=== PATIENT | female | born 1945 | race Caucasian/White ===

== ENCOUNTER 2021-12-07 13:15 | Observation (INO) ==
[2021-12-07 13:57] LABS: Hematocrit 24.7 % (35.3-44.9); Hemoglobin 8.1 g/dL (11.5-15.4); Lymphocytes # 0.4 K/mcL (0.6-4.6); Mean Corpuscular HGB Conc 32.8 g/dL (31.6-35.5); Mean Corpuscular Volume 94.6 fL (83.0-100.0); Mean Platelet Volume 9.8 fL (9.4-12.4); Monocytes # 0.5 K/mcL (0.0-1.3); Nucleated Red Blood Cells 0.3 /100 WBC (0); Platelet Count 241 K/mcL (140-400); Red Blood Count 2.61 M/mcL (3.82-4.97); Red Cell Distribution Width 15.4 % (11.5-14.5); White Blood Count 6.6 K/mcL (4.3-11.1)
[2021-12-07] MEDS ORDERED: Isovue-370 500 ML BOTTLE IVP ONE ×2 (13:57→14:32)
[2021-12-07 14:01] LABS: INR 1.4; Prothrombin Time 15.5 Seconds (9.4-12.1)
[2021-12-07] MEDS ORDERED: Cefepime HCl 2,000 MG in 0.9 % Sodium Chloride 10 ML IVP ONE (14:04)
[2021-12-07] MEDS ORDERED: 0.9 % Sodium Chloride 1,000 ML IV ONE ×2 (14:04→14:33)
[2021-12-07] MEDS ORDERED: Tdap (Boostrix) Vaccine 0.5 ML SYRINGE IM ONE (14:05)
[2021-12-07 14:27] LABS: Bilirubin,Urine Large (Negative); Blood,Urine Large (Negative); Clarity,Urine Cloudy (Clear); Color,Urine Brown (Yellow); Glucose,Urine (UA) Normal (Normal); Ketones,Urine 15 mg/dL (Negative); Leukocyte Esterase,Urine Large (Negative); Nitrite,Urine Negative (Negative); Protein,Urine >=300 mg/dL (Neg-Trace)
[2021-12-07 14:30] LABS: Alanine Aminotransferase 9 Units/L (7-52); Albumin/Globulin Ratio 0.9 (1.1-2.2); Alkaline Phosphatase 115 Units/L (34-104); Aspartate Amino Transferase 11 Units/L (13-39); BUN/Creatinine Ratio 31 (6-26); Bilirubin,Direct 0.2 mg/dL (0.0-0.2); Bilirubin,Indirect 0.5 mg/dL (0.0-1.0); Bilirubin,Total 0.7 mg/dL (0.3-1.0); Blood Urea Nitrogen 60 mg/dL (8-23); Calcium 9.1 mg/dL (8.6-10.3); Carbon Dioxide 25 mEq/L (23-29); Chloride 96 mEq/L (98-107); Globulin 3.4 g/dL (2.4-3.5); Glucose 114 mg/dL (70-105); Lipase < 3 Units/L (11-82); Osmolality,Calculated 288 (280-300); Potassium 5.7 mEq/L (3.5-5.1); Sodium 130 mEq/L (136-145); Total Protein 6.4 g/dL (6.4-8.9); Troponin I 0.18 ng/mL (< 0.04); eGFR For African Americans 31 (> 60); eGFR For Non-African Americans 25 (> 60)
[2021-12-07] MEDS ORDERED: Aspirin 325 MG TABLET PO ONE (14:33)
[2021-12-07] MEDS ORDERED: Albuterol 2.5 MG/3 ML NEBULIZER IH ONE (14:34)
[2021-12-07 14:38] LABS: Hypochromasia Present (Not Present); Large Platelets Present (Not Present); Neutrophils # 5.7 K/mcL (1.6-8.9); Platelet Estimate Normal (Normal)
[2021-12-07 14:42] LABS: Bacteria,Urine Present per hpf (None-Few); RBC,Urine Present per hpf (0-3); Renal Epithelial Cells,Urine Present per hpf (None-Few); Transitional Epi Cells,Urine Present per hpf (None-Few); WBC,Urine Present per hpf (0-3)
[2021-12-07] MEDS ORDERED: Ondansetron 4 MG/2 ML VIAL IVP PRN ×2 (15:12→15:50)
[2021-12-07] MEDS ORDERED: *HR* HYDROmorphone (PF) 1 MG/ML SYRINGE IVP ONE (15:12)
[2021-12-07 15:39] LABS: Phosphorous 3.7 mg/dL (2.7-4.5); Uric Acid 10.7 mg/dL (2.3-7.6)
[2021-12-07] MEDS ORDERED: Naloxone 0.4 MG/ML INJ IVP PRN (15:50)
[2021-12-07] MEDS ORDERED: Acetaminophen 325 MG TABLET PO PRN (15:50)
[2021-12-07] MEDS: MetroNIDAZOLE 500 MG/100 ML 500 MG/100 ML BAG IVPB SCH (18:04)
[2021-12-07] MEDS ORDERED: *HR* Dextrose 50 % in Water (Syg) 50 ML SYRINGE IVP ONE (18:24)
[2021-12-07] MEDS ORDERED: Insulin Human Regular 10 UNIT in 0.9 % Sodium Chloride 10 ML IV ONE (18:24)
[2021-12-07] MEDS: Calcium Gluconate 1gm/50mL 1 GM/50 ML BAG IVPB SCH ×2 (19:36→20:15)
[2021-12-07 20:14] LABS: Calcium 7.9 mg/dL (8.6-10.3); Potassium 5.3 mEq/L (3.5-5.1)
[2021-12-07] MEDS: SODIUM ZIRCONIUM CYCLOSILICATE 5 GM POWD.PACK PO SCH (20:14)
[2021-12-07] MEDS: 0.9 % Sodium Chloride 1,000 ML IVC SCH (20:22)
[2021-12-07 23:52] LABS: Calcium 8.8 mg/dL (8.6-10.3); Potassium 5.2 mEq/L (3.5-5.1)
[2021-12-08] MEDS: MetroNIDAZOLE 500 MG/100 ML 500 MG/100 ML BAG IVPB SCH ×3 (00:26→16:24)
[2021-12-08 02:59] LABS: Basophils % 0.2 %; Eosinophils % 0.2 %; Hemoglobin 6.8 g/dL (11.5-15.4); Immature Granulocytes % 2.2 % (0-4); Lymphocytes # 0.3 K/mcL (0.6-4.6); Lymphocytes % 4.6 %; Mean Corpuscular HGB Conc 32.4 g/dL (31.6-35.5); Mean Corpuscular Hemoglobin 31.3 pg (28.0-33.3); Mean Corpuscular Volume 96.8 fL (83.0-100.0); Mean Platelet Volume 9.6 fL (9.4-12.4); Monocytes # 0.4 K/mcL (0.0-1.3); Monocytes % 6.7 %; Neutrophils # 5.1 K/mcL (1.6-8.9); Nucleated Red Blood Cells 0.3 /100 WBC (0); Platelet Count 196 K/mcL (140-400); Red Blood Count 2.17 M/mcL (3.82-4.97); Red Cell Distribution Width 15.7 % (11.5-14.5); Segmented Neutrophils % 86.1 %; White Blood Count 5.9 K/mcL (4.3-11.1)
[2021-12-08 03:16] LABS: Calcium 8.6 mg/dL (8.6-10.3); Magnesium 1.8 mg/dL (1.6-2.6); Potassium 5.5 mEq/L (3.5-5.1); Potassium 5.8 mEq/L (3.5-5.1)
[2021-12-08 03:22] LABS: % Iron Saturation 12 % (15-50); Iron 20 mcg/dL (50-170); Transferrin 122 mg/dL (203-362)
[2021-12-08 03:37] LABS: Ferritin 534 ng/mL (10-120)
[2021-12-08 03:43] LABS: Platelet Estimate Normal (Normal)
[2021-12-08 03:45] LABS: Vitamin B12 > 1500 pg/mL (250-1100)
[2021-12-08] MEDS ORDERED: *HR* Dextrose 50 % in Water (Syg) 50 ML SYRINGE IVP ONE (04:00)
[2021-12-08] MEDS ORDERED: Insulin Human Regular 10 UNIT in 0.9 % Sodium Chloride 10 ML IV ONE (04:00)
[2021-12-08] MEDS ORDERED: 0.9 % Sodium Chloride 250 ML ONE (04:16)
[2021-12-08] MEDS: Cefepime HCl 1,000 MG in 0.9 % Sodium Chloride Mini Bag 100 ML IVPB SCH ×2 (04:46→18:06)
[2021-12-08] MEDS: *HR* OxyCODONE Immed Rel 5 MG TABLET PO PRN ×2 (05:52→16:39)
[2021-12-08 06:25] LABS: Calcium 8.3 mg/dL (8.6-10.3); Potassium 5.1 mEq/L (3.5-5.1)
[2021-12-08] MEDS ORDERED: *HR* Dextrose 50 % in Water (Syg) 50 ML SYRINGE ONE (07:12)
[2021-12-08] MEDS ORDERED: *HR* Dextrose 50 % in Water (Syg) 50 ML SYRINGE IVP PRN (07:23)
[2021-12-08] MEDS ORDERED: Dextrose 4 GM Chewable Tablets PO PRN ×2 (07:23)
[2021-12-08] MEDS ORDERED: D5% in Water 1,000 ML IVC PRN (07:23)
[2021-12-08] MEDS: SODIUM ZIRCONIUM CYCLOSILICATE 5 GM POWD.PACK PO SCH ×2 (09:50→10:02)
[2021-12-08] MEDS: 0.9 % Sodium Chloride 1,000 ML IVC SCH ×2 (12:07→16:23)
[2021-12-08] MEDS ORDERED: Melatonin 3 MG TABLET PO PRN (14:18)
[2021-12-09] MEDS: *HR* OxyCODONE Immed Rel 5 MG TABLET PO PRN ×3 (00:28→19:36)
[2021-12-09] MEDS: MetroNIDAZOLE 500 MG/100 ML 500 MG/100 ML BAG IVPB SCH ×3 (00:28→16:43)
[2021-12-09] MEDS: 0.9 % Sodium Chloride 1,000 ML IVC SCH ×2 (05:33→16:42)
[2021-12-09] MEDS: Cefepime HCl 1,000 MG in 0.9 % Sodium Chloride Mini Bag 100 ML IVPB SCH ×2 (05:34→16:45)
[2021-12-09] MEDS: FLUoxetine 20 MG CAPSULE PO SCH (08:16)
[2021-12-09] MEDS: SODIUM ZIRCONIUM CYCLOSILICATE 5 GM POWD.PACK PO SCH (08:17)
[2021-12-09 09:19] LABS: Hematocrit 29.7 % (35.3-44.9); Mean Corpuscular HGB Conc 32.7 g/dL (31.6-35.5); Mean Corpuscular Hemoglobin 31.8 pg (28.0-33.3); Mean Corpuscular Volume 97.4 fL (83.0-100.0); Mean Platelet Volume 9.5 fL (9.4-12.4); Nucleated Red Blood Cells 0.3 /100 WBC (0); Platelet Count 223 K/mcL (140-400); Red Blood Count 3.05 M/mcL (3.82-4.97); Red Cell Distribution Width 16.5 % (11.5-14.5)
[2021-12-09 09:24] LABS: Hemoglobin 9.7 g/dL (11.5-15.4); White Blood Count 10.1 K/mcL (4.3-11.1)
[2021-12-09 09:37] LABS: Calcium 8.6 mg/dL (8.6-10.3); Potassium 5.6 mEq/L (3.5-5.1)
[2021-12-09 09:40] LABS: Lymphocytes # 0.2 K/mcL (0.6-4.6); Monocytes # 0.4 K/mcL (0.0-1.3); Neutrophils # 9.5 K/mcL (1.6-8.9); Platelet Estimate Normal (Normal)
[2021-12-09] MEDS: *HR* HYDROmorphone (PF) 1 MG/ML SYRINGE IVP PRN (10:40)
[2021-12-09] MEDS: Benzonatate 100 MG CAPSULE PO PRN ×2 (10:42→20:24)
[2021-12-10] MEDS: MetroNIDAZOLE 500 MG/100 ML 500 MG/100 ML BAG IVPB SCH ×2 (00:24→07:58)
[2021-12-10] MEDS: *HR* HYDROmorphone (PF) 1 MG/ML SYRINGE IVP PRN ×2 (03:21→13:19)
[2021-12-10 03:27] VITALS: TEMP 97.5
[2021-12-10 05:13] LABS: Hematocrit 27.5 % (35.3-44.9); Hemoglobin 8.5 g/dL (11.5-15.4); Mean Corpuscular HGB Conc 30.9 g/dL (31.6-35.5); Mean Corpuscular Hemoglobin 30.9 pg (28.0-33.3); Mean Platelet Volume 9.3 fL (9.4-12.4); Neutrophils # 7.3 K/mcL (1.6-8.9); Nucleated Red Blood Cells 0.3 /100 WBC (0); Platelet Count 213 K/mcL (140-400); Red Blood Count 2.75 M/mcL (3.82-4.97); Red Cell Distribution Width 16.9 % (11.5-14.5); White Blood Count 8.7 K/mcL (4.3-11.1)
[2021-12-10] MEDS: Cefepime HCl 1,000 MG in 0.9 % Sodium Chloride Mini Bag 100 ML IVPB SCH (05:33)
[2021-12-10] MEDS: 0.9 % Sodium Chloride 1,000 ML IVC SCH (05:33)
[2021-12-10 05:34] LABS: Calcium 8.4 mg/dL (8.6-10.3); Potassium 5.5 mEq/L (3.5-5.1)
[2021-12-10 05:42] LABS: Eosinophils # 0.2 K/mcL (0.0-0.6); Monocytes # 0.2 K/mcL (0.0-1.3)
[2021-12-10 05:43] LABS: Platelet Estimate Normal (Normal)
[2021-12-10] MEDS: *HR* OxyCODONE Immed Rel 5 MG TABLET PO PRN ×2 (05:44→11:44)
[2021-12-10 06:46] VITALS: BP 132/79; PULSE 83; O2SAT 93
[2021-12-10] MEDS: FLUoxetine 20 MG CAPSULE PO SCH (07:59)
[2021-12-10] MEDS: Benzonatate 100 MG CAPSULE PO PRN (11:44)
[2021-12-10] MEDS ORDERED: OLANZapine 5 MG TAB.RAPDIS PO SCH (14:18)
== END 2021-12-10 13:35 | disposition hospice, home (50) ==
LOC: 3NENU 13:15 → EMEROOARM 13:15 → SUATTDRO 15:25 → 3NENU 16:46
PROVIDERS: ADMIT Pharmacist; ATTEND Internal Medicine